=== PATIENT | male | born 1970 | race African-American/Black ===

== ENCOUNTER 2016-08-07 05:34 | Emergency (ER) | payer SELFPAY ==
[~2016-08-07] VITALS: Ht 167.6 cm; Wt 83.0 kg
[~2016-08-07 05:34] MED LIST: NKM; NORCO 5-325 TA1 EACH PO
[2016-08-07] MEDS ORDERED: ZOFRAN4 MG ORAL (06:20)
[2016-08-07 06:28] VITALS: BP 122/78
[2016-08-07 06:29] VITALS: BP 122/78
--- NOTE | 2016-08-07 08:33 | Emergency Room Report ---
History of Present Illness General Chief Complaint: Nausea Source: Patient Present Illness HPI Patient is a 46-year-old male who presented after increased nausea. Patient gradual onset of symptoms. Patient stated he had recently smoked marijuana to patient reported nausea. He denied abdominal pain. He denied any headache. He had been previously healthy. He denied any fever chills. He had not episodes of diarrhea the he had not been vomiting. The patient stated he had some left shoulder discomfort. Allergies: Coded Allergies: No Known Allergies (Unverified , 08/23/12) Patient History Past Medical History: see triage record Reviewed Nursing Documentation: PMH: Agreed, PSxH: Agreed Nursing Documentation-PMH Past Medical History: No Stated History Review of Systems All Other Systems: negative except mentioned in HPI Physical Exam Vital Signs Date Time Temp Pulse Resp B/P Pulse Ox O2 Delivery O2 Flow Rate FiO2 08/07/16 05:36 98.1 78 16 125/83 97 Room Air General Appearance: well appearing, no apparent distress, alert, GCS 15 Head: normocephalic, atraumatic ENT: hearing grossly normal, normal voice Neck: full range of motion, supple Respiratory: no respiratory distress, speaking full sentences Cardiovascular #1: normal peripheral pulses, regular rate, rhythm, no edema Gastrointestinal: normal inspection, normal bowel sounds, non tender, soft Musculoskeletal: normal inspection, no calf tenderness Neurologic: normal inspection, alert, oriented x3, responsive, normal gait Psychiatric: mood/affect normal Skin: normal inspection, no rash Medical Decision Making Diagnostic Impression: Primary Impression: Nausea in adult patient ER Course Patient presented for nausea. Differential diagnoses included was not limited to hyponatremia, gastroenteritis, hyperemesis, cyclic vomiting hypoglycemia, myocardial infarction others. Patient's benign exam and does not appear to require any further imaging or laboratory testing at this time. EKG interpreted by me showed normal sinus rhythm with a rate of [address] or T wave changes. The patient is advised to return if he began having increased symptoms. Patient given Zofran orally. It is unclear what the patient's nausea is caused by however he appears stable for discharge. The patient is advised to follow up with primary care doctor in 1-2 days. Patient is advised to return if any worsening condition or if any changes in status that are concerning. Last Vital Signs Date Time Temp Pulse Resp B/P Pulse Ox O2 Delivery O2 Flow Rate FiO2 08/07/16 06:29 98.1 73 16 122/78 97 Room Air Status: improved Disposition: HOME, SELF-CARE Condition: Stable Scripts Ondansetron (Zofran) 4 Mg Tablet 4 MG ORAL Q6H Y for Nausea & Vomiting, #30 TAB 0 Refills Prov: Roque Mehta 08/07/16 Referrals: NOT CHOSEN IPA/MD,REFERRING (PCP) primary care physician 1-2 days Departure Forms: Return to Work Return to Work in (Days): 1 Patient Instructions: Nausea and Vomiting, Adult Roque Mehta Aug 07, 2016 08:33
--- NOTE | 2016-08-09 19:02 | Cardiology Report ---
APPROVED REPORT EKG Measurement Heart [id number] Normal sinus rhythm Normal ECG
== END 2016-08-07 06:31 | disposition home or self-care (01) ==
LOC: EMR 06:24
DX: R11.0 Nausea (principal)
CPT/HCPCS: 93005; 99283